=== PATIENT | female | born 1960 | race Caucasian/White ===

== ENCOUNTER 2017-10-23 07:35 | Day surgery (SDC) | payer MEDICAID ==
[2017-10-23] MEDS ORDERED: Midazolam 1 MG/ML 2 ML SDV ONE (07:50)
[2017-10-23] MEDS ORDERED: fentaNYL 100 MCG/2 ML SDV ONE (07:50)
[2017-10-23] MEDS ORDERED: Propofol 200 MG/20 ML SDV ONE (07:50)
[2017-10-23] MEDS ORDERED: Lactated Ringers 1,000 ML IV SCH (08:15)
[2017-10-23 10:31] VITALS: BP 123/64
--- NOTE | 2017-10-23 10:50 | OR ---
DATE OF PROCEDURE: 10/23/2017 PREOPERATIVE DIAGNOSIS: Strong family history of colon cancer; father had colon cancer. POSTOPERATIVE DIAGNOSIS: Unremarkable colonoscopy; strong family history of colon cancer, father had colon cancer. PROCEDURE PERFORMED: Colonoscopy to the cecum. SURGEON: Guillermo Teague MD. ANESTHESIA: IV anesthesia with monitored anesthesia care. INDICATION: This 57-year-old white female is referred for a colonoscopy because of a strong family history of colon cancer. Her father had colon cancer at age 59. She says her last colonoscopic exam was done five years ago. I counseled her for the procedure including risks and alternatives, and she gave her informed consent to proceed. DESCRIPTION OF PROCEDURE: The patient was placed in the left lateral decubitus position. IV anesthesia was administered by the Anesthesia Service. Time-out was held. A rectal exam was performed which was unremarkable. The flexible video Olympus colonoscope was introduced through her anus, up her rectum, and out her colon all the way to the cecum. Once the cecum was reached, the scope was slowly withdrawn examining the mucosa throughout. No mucosal abnormalities were noted. The scope was retroflexed in the rectum with the distal rectum appearing unremarkable. The scope was straightened and removed. She tolerated the procedure well. Guillermo Teague MD /[id number] MTDD
== END 2017-10-23 10:34 | disposition home or self-care (01) ==
LOC: JP.SDS 07:35
PROVIDERS: ATTEND Surgery
DX: Z12.11 Encounter for screening for malignant neoplasm of colon (principal); I10 Essential (primary) hypertension; E78.00 Pure hypercholesterolemia, unspecified; Z91.013 Allergy to seafood; Z91.048 Other nonmedicinal substance allergy status; Z80.0 Family history of malignant neoplasm of digestive organs
CPT/HCPCS: 45378; J2250; J2704; J3010; J7120

== ENCOUNTER 2022-06-15 00:16 | Emergency (ER) | payer MEDICAID ==
[2022-06-15 00:58] LABS: ESTIMATED GFR 98 mL/min (>60); TROPONIN I HIGH SENSITIVITY 6.8 pg/mL (<=60.3)
[2022-06-15 01:31] LABS: CORONAVIRUS COVID-19 NAA NEGATIVE (NEGATIVE)
[2022-06-15] MEDS ORDERED: hydrALAZINE 25 MG Tab PO PRN (01:41)
[2022-06-15] MEDS ORDERED: methylPREDNISolone Sodium Succinate 125 MG/2 ML SDV IVPUSH ONE (01:53)
[2022-06-15] MEDS ORDERED: diphenhydrAMINE 50 MG/ML SDV IVPUSH ONE (01:53)
[2022-06-15] MEDS ORDERED: Iopamidol 755 Mg/ML 100 ML Bottle IV STA (02:54)
[2022-06-15] MEDS ORDERED: Sodium Chloride 0.9% 100 ML IV STA (02:54)
[2022-06-15] MEDS ORDERED: Ketorolac 15 MG/ML SDV IVPUSH ONE (03:23)
[2022-06-15 04:21] VITALS: BP 172/100; PULSE 85
== END 2022-06-15 04:15 | disposition home or self-care (01) ==
LOC: JP.ED 00:16
DX: R07.89 Other chest pain (principal); I10 Essential (primary) hypertension; E66.9 Obesity, unspecified; Z68.41 Body mass index [BMI] 40.0-44.9, adult; Z91.018 Allergy to other foods; Z79.899 Other long term (current) drug therapy; Z20.822 Contact with and (suspected) exposure to COVID-19
CPT/HCPCS: 0241U; 36415; 71275; 80053; 84484; 85025; 85379; 85610; 85730; 86140; 93005; 96374; 96375; 99285; A9270; J1200; J1885; J2930; J3490; Q9967

== ENCOUNTER 2022-09-04 06:19 | Day surgery (SDC) | payer MEDICAID ==
[2022-09-04] MEDS ORDERED: Lactated Ringers 1,000 ML IV SCH (07:00)
[2022-09-04] MEDS ORDERED: Midazolam 1 MG/ML 2 ML SDV ONE (07:08)
[2022-09-04] MEDS ORDERED: Propofol 200 MG/20 ML SDV ONE ×2 (07:08→07:35)
[2022-09-04] MEDS ORDERED: fentaNYL 50 MCG/ML SDV ONE (07:08)
[2022-09-04 08:56] VITALS: BP 123/68; PULSE 74
== END 2022-09-04 08:57 | disposition home or self-care (01) ==
LOC: JP.SDS 06:19
PROVIDERS: ATTEND Family Medicine
DX: Z12.11 Encounter for screening for malignant neoplasm of colon (principal); K62.1 Rectal polyp; I10 Essential (primary) hypertension; Z80.0 Family history of malignant neoplasm of digestive organs; Z79.899 Other long term (current) drug therapy
CPT/HCPCS: 45380; 88305; J2250; J2704; J3010; J7120